=== PATIENT | male | born 1985 | race Caucasian/White ===

== ENCOUNTER 2018-01-13 06:57 | Emergency (ER) | payer OTHER ==
[~2018-01-13] VITALS: Ht 188 cm; Wt 86.2 kg
[~2018-01-13 06:57] MED LIST: ALBU90OI INH; AMOX1XR PO; AMOX500 PO; AZIT250 PO; Bactrim Ds Tab1 EACH PO; CEPH500 PO; CODACEE120 PO; CYCL10 PO; Cleocin HCl150 MG PO; FLUT.05NI; GUAI600T33 PO; HYDACE5 PO; HYDR1TAB94 PO; IBUP600 PO; IBUP800 PO; KETO10 PO; LIDO2TG30 TOP; MUPI2TO TOP; NAPR375 PO; NAPR500 PO; NAPR550 PO; NEOPOLHCSU OT; NYST100SU MT; Nystatin15 GM TOP; ONDA4 PO; OXYACE5T PO; PENVK500 PO; PERM5TC TOP; POLTRIOPSO OD; PROACE100 PO; PROM25 PO; RXCYCL10 PO; RXHYDACE PO; RXNAPNA550 PO; RXOXYACE PO; RXPROACE PO; RXPROM25 PO; TRAM50 PO; [UNRECOGNIZED DRUG - REMARK]
[2018-01-13] MEDS ORDERED: IBUP400 PO (08:28)
== END 2018-01-13 08:49 | disposition home or self-care (01) ==
LOC: ER 06:57
DX: S29.9XXA Unspecified injury of thorax, initial encounter (principal); F17.200 Nicotine dependence, unspecified, uncomplicated; X58.XXXA Exposure to other specified factors, initial encounter
CPT/HCPCS: 71046; 99283-25

== ENCOUNTER 2018-09-22 12:16 | Emergency (ER) | payer MEDICAID ==
[~2018-09-22] VITALS: Ht 188 cm; Wt 83.9 kg
[~2018-09-22 12:16] MED LIST changes: +IBUP400 PO; +Mupirocin22 GM TOP
== END 2018-09-22 14:10 | disposition left against medical advice (07) ==
LOC: ER 12:16
DX: Z53.21 Procedure and treatment not carried out due to patient leaving prior to being seen by health care provider (principal); K59.00 Constipation, unspecified
CPT/HCPCS: 74018; 99283-25